=== PATIENT | female | born 1950 | race Two or more races ===

== ENCOUNTER 2018-11-25 10:13 | Inpatient (IN) | payer OTHER ==
[~2018-11-25] VITALS: Ht 160 cm; Wt 70.8 kg
[2019-01-08] MEDS ORDERED: METFORMIN HCL500 MG PO (12:00)
[2019-01-08] MEDS ORDERED: LISINOPRIL20 MG PO (12:00)
== END 2019-01-15 14:42 | disposition home or self-care (01) | DRG 741 ==
LOC: SURG 01-08 10:00 → O/R 01-14 10:00 → SURG-SUITE 01-14 10:00 → SURG 01-14 10:00 → SURG-SUITE 01-14 15:44
PROVIDERS: ADMIT Obstetrics & Gynecology Gynecologic Oncology
PROC: 0UT74ZZ Resection of Bilateral Fallopian Tubes, Percutaneous Endoscopic Approach (ICD-10-PCS; 2019-01-14)
PROC: 0UT24ZZ Resection of Bilateral Ovaries, Percutaneous Endoscopic Approach (ICD-10-PCS; 2019-01-14)
PROC: 07BC4ZX Excision of Pelvis Lymphatic, Percutaneous Endoscopic Approach, Diagnostic (ICD-10-PCS; 2019-01-14)
PROC: 0UT94ZZ Resection of Uterus, Percutaneous Endoscopic Approach (ICD-10-PCS; principal; 2019-01-14 09:45)
DX: C54.1 Malignant neoplasm of endometrium (principal); R59.0 Localized enlarged lymph nodes; I10 Essential (primary) hypertension; E11.9 Type 2 diabetes mellitus without complications; Z79.4 Long term (current) use of insulin